=== PATIENT | male | born 1995 | race Caucasian/White ===

== ENCOUNTER 2020-02-25 16:55 | Outpatient (REF) | payer OTHER, SELFPAY ==
[2020-02-26 23:57] LABS: COVID-19 RT-PCR Result NEGATIVE (Negative)
== END 2020-02-25 17:15 ==
LOC: NCHCN 16:55
PROVIDERS: PCP Nurse Practitioner Family; Visit Provider Nurse Practitioner Family
DX: J06.9 Acute upper respiratory infection, unspecified (principal)
CPT/HCPCS: U0003

== ENCOUNTER 2021-02-18 20:05 | Outpatient (REF) | payer OTHER, SELFPAY ==
[2021-02-23 12:10] LABS: IgA 358 mg/dL (85-499); Interpretation (See Note); Tissue Transglutaminase IgA 1.5 U/mL (<4.0)
== END 2021-02-18 20:06 | disposition home or self-care (01) ==
LOC: NCHCN 20:05
PROVIDERS: PCP Nurse Practitioner Family; Visit Provider Physician Assistant
DX: R19.7 Diarrhea, unspecified (principal)
CPT/HCPCS: 82784; 83516